=== PATIENT | female | born 2005 | race Caucasian/White ===

== ENCOUNTER 2023-04-06 08:59 | Day surgery (SDC) | payer OTHER, SELFPAY ==
[2023-04-06 14:30] VITALS: BMI 23.8
[2023-04-07] VITALS (13 sets, daily range): BP systolic 92–110; BP diastolic 55–73; PULSE 73–89; RESP 14–22; O2SAT 99–100; BMI 23.4
--- NOTE | 2023-04-07 11:15 | WPDHPUPDATE1 ---
History and Physical Update Update Date/Time: 04/07/23 11:15 History and Physical has been reviewed, including an updated exam of the patient. There are NO changes in the patient's condition. Risks, benefits, and alternatives have been discussed and questions answered. Patient agrees to proceed with procedure.
--- NOTE | 2023-04-07 11:15 | WPDMODSED ---
Moderate Sedation Note-Pt Data Patient Data Diagnosis: Aortic regurgitation, possible congenital heart disease Present Complaint: None History and physical update: Patient is a pleasant 17-year-old female with no significant past medical history aside from ADHD originally seen for palpitations and tachyarrhythmia who underwent 2D echocardiogram which revealed possible bicuspid congenital aortic valve with [id number] aortic valve regurgitation subsequently referred for transesophageal echocardiogram for further clarification of cardiac anatomy and valvular heart disease. Impression: Aortic regurgitation secondary to possible bicuspid aortic valve Palpitations suggestive of SVT ADHD Recommendations: Transesophageal echocardiogram for evaluation congenital heart disease. Recommendation to follow. Allergies Allergy/AdvReac Type Severity Reaction Status Date / Time Penicillins Allergy Unknown Verified 04/07/23 10:42 Home Medications Medication Instructions Recorded Confirmed Type bupropion HCl 150 mg tablet,12 hr 150 mg PO DAILY 04/06/23 04/06/23 History sustained-release norgestimate-ethinyl estradiol 1 tablet PO DAILY 04/06/23 04/06/23 History 0.18 mg/0.215mg/0.25mg-35 mcg(28)tablet (Tri-Sprintec (28)) Current Medications: Active Medications Sodium Chloride (Normal Saline Iv) 1,000 mls @ 100 mls/hr IV CONT .Q10H SHELLY Sedation/Anesthesia: No previous sedation/anesthesia problems (including family history). [facility] Past Medical History Medical History ADHD Aortic regurgitation Paroxysmal SVT (supraventricular tachycardia) Social History Social History Smoking status: Never smoker Second hand tobacco smoke exposure: No Alcohol intake: never Substance use: never Substance use type: does not use Living arrangements: with family Spiritual care concerns: No Mod Sed Physical Exam Physical Exam Pre Procedural Exam: Normal: Appearance, Eyes, Ears, Nose, Neck (Neck supple, normal range of motion), Throat (Posterior hypopharynx clear, nonerythematous), Airway (Normal anatomy no obstruction), Lungs (Clear to auscultation bilaterally), Heart Size, Heart Rate, Heart Rhythm, Neuro Exam, Abdomen, Liver, Extremities and Skin Hours since solid foods: 12 Hours since liquid intake: 12 Mallampati Classification: class III Internal Medicine - PN: Obj Da Vital Signs Vital Signs: Vital Signs - 24 hr 04/07/23 10:45 Pulse Rate 86 Respiratory Rate 20 Blood Pressure 110/64 Pulse Oximetry 100 Oxygen Delivery Room Air Meds/Results Medications: Active Medications Generic Name Dose Route Start Last Admin Trade Name Freq PRN Reason Stop Dose Admin Sodium Chloride 1,000 mls @ 100 mls/hr 04/07/23 10:30 Normal Saline Iv IV CONT .Q10H SHELLY ASA Classification/Sedation ASA Classification/Sedation ASA Class: III Emergent: No Risks: Risks, benefits and alternatives explained and patient/family accepted plan for sedation. Patient re-evaluated immediately prior to sedation.
--- NOTE | 2023-04-07 11:22 | WPDTEECHO ---
SANDRA TransEsophageal Echocardiogram Date of procedure: 04/07/23 Procedure Type: Transesophageal echocardiogram Diagnosis: Aortic regurgitation, possible congenital heart disease Indications: Aortic regurgitation, possible congenital heart disease Image Quality: Acceptable Findings: Brief history present illness: Patient is a pleasant 17-year-old female with complaints palpitations possible SVT with a history of ADHD who underwent echocardiogram which revealed mild to moderate aortic regurgitation of possible bicuspid aortic valve subsequently referred for transesophageal echocardiogram for further evaluation for further clarification of cardiac anatomy and severity of aortic regurgitation. Procedure in detail: After verbal and written informed consent was obtained the patient risks, benefits, and alternatives explained in detail the patient agreed to proceed with the plan of care as outlined above. The patient was evaluated at bedside in the [facility] procedure room. The posterior oropharynx, neck, and jaw angle all within normal limits on examination. Lungs were clear to auscultation. See pre-sedation note for further details The patient was then placed in the appropriate 30 to 45 degree angle supine position at a slight left lateral decubitus position. Patient was monitored throughout the study with telemetry, oxygen saturation, end-tidal CO2 monitoring, blood pressure, heart rate, and respirations. The posterior hypopharynx was then locally anesthetized using repeated administration of Hurricaine spray as well as gargled viscous lidocaine. After local anesthetic of the posterior hypopharynx was achieved and the oral bite block placed, moderate sedation was administered. After confirmation of adequate moderate sedation, the transesophageal echocardiogram probe was advanced through the oral bite block into the posterior hypopharynx and into the esophagus easily and without complication. Multiple, multiplanar echocardiographic images were obtained in multiple standard re- projections. Pulsed wave, continuous-wave, and color-flow Doppler were utilized in conjunction with this study. At the conclusion of the study, the transesophageal echocardiogram probe was removed easily and without complication. The patient tolerated the procedure well without difficulty. Patient was in sinus rhythm throughout the study. Moderate Sedation/Anesthesia administration: Patient reports no prior problems with sedation/anesthesia. Please see pre-sedation noted for physical examination documentation. As noted above, after adequate local anesthesia of the posterior hypopharynx was achieved, a total of 5 mg intravenous Versed and a total of 175 mcg intravenous Fentanyl in multiple divided doses was administered for moderate sedation. Sedation start time was 1148 and end time was 1218 for a total intra-service/procedure face-face time of 30 minutes. Sedation was administered by a qualified/certified observer Ruperto Mayer RN under my supervision with intra-procedure [id number] observation and management throughout the entirety of the procedure. There were no other issues or complications and patient tolerated the procedure well. See post-anesthesia documentation. FINDINGS: LEFT VENTRICLE: Size and systolic function were within normal limits without wall motion abnormalities with ejection fraction of 65%. RIGHT VENTRICLE: Size and systolic function within normal limits. LEFT ATRIUM: Normal size. RIGHT ATRIUM: Normal size. INTERATRIAL SEPTUM: Interatrial septum is anatomically normal without evidence of shunt with color-flow Doppler nor with injection of agitated saline. MITRAL VALVE: Mitral valve is anatomically normal with preserved leaflet excursion and no regurgitation identified. AORTIC VALVE: The aortic valve appears to be anatomically 3 leaflet with evidence for functionally bicuspid with fusion/median raphe between non and right chidi
== END 2023-04-07 13:20 | disposition home or self-care (01) ==
PROVIDERS: Visit Provider Internal Medicine Cardiovascular Disease
PROC: (CPT 93312; principal; 2023-04-07 11:30)
DX: Q23.1 Congenital insufficiency of aortic valve (principal); F90.9 Attention-deficit hyperactivity disorder, unspecified type; I47.10 Supraventricular tachycardia, unspecified
CPT/HCPCS: 93312; 93320; 93325; J2250; J3010; J7030

== ENCOUNTER 2023-07-17 10:19 | Inpatient (IN) | payer OTHER, SELFPAY ==
[2023-07-17] VITALS (9 sets, daily range): BP systolic 97–111; BP diastolic 55–70; PULSE 91–113; RESP 16–20; TEMP 36.5–36.8; O2SAT 95–100; BMI 23.3
--- NOTE | ~2023-07-17 | XR_ITS ---
XR chest 2V DATE: 07/17/2023 12:58 INDICATION: Shortness of breath, tachycardia. Influenza A+. TECHNIQUE: PA and lateral views COMPARISON: None FINDINGS: Normal heart size. No hilar or mediastinal enlargement. No pulmonary infiltrate or consolid ation, pleural effusion or pulmonary vascular congestion or pneumothorax. Included skeletal structure s are unremarkable. IMPRESSION: Negative Reviewed, dictated and finalized at location A. IMPRESSION: Negative
--- NOTE | ~2023-07-17 | CT_ITS ---
EXAMINATION: CTA chest PE protocol DATE: 07/17/2023 14:22 INDICATION: Shortness of breath. Tachycardia. TECHNIQUE: Computed tomography angiography (CTA) of the chest was performed with 100 mL Omnipaque-350 intravenous contrast timed to evaluate the pulmonary arteries. Coronal maximum intensity projection 3D-reconstructions were created by the technologist. Automated exposure control and iterative reconst ruction technique were employed. The dose-length product was 168.47 mGy-cm. COMPARISON: None. FINDINGS: The lungs demonstrate minimal atelectasis. No pleural effusion. The heart size is normal. N o pericardial effusion. There is no pulmonary embolus. There is mild thoracic spondylosis. IMPRESSION: 1. No pulmonary embolus. Reviewed, dictated and finalized at location E. IMPRESSION: 1. No pulmonary embolus.
[2023-07-17 12:04] LABS: Influenza A QL RT-PCR Positive (Negative); Influenza B QL RT-PCR Negative (Negative); RSV RNA, RT-PCR Negative (Negative); SARS-CoV-2 RNA PCR Negative (Negative)
--- NOTE | 2023-07-17 12:38 | ED.GENADULT ---
HPI - General Adult General Chief complaint: Unspecified Stated complaint: REQUESTING FLU SWAB Time Seen by Provider: 07/17/23 12:37 Source: patient Mode of arrival: ambulatory Limitations: no limitations History of Present Illness HPI narrative: Jacklyn is a 18-year-old female patient presenting to the emergency room with complaints shortness of breath and tachycardia. States that this started yesterday. Reports she does have a history of paroxysmal SVT and aortic regurgitation. States her watch-tracked heart over 200 yesterday, she was having some palpitations and and she felt as though she was going to pass out. Went to the urgent care today and they told her to come into the emergency room. Appears to be very anxious. Is requesting COVID/influenza testing. Patient had an echocardiogram back in March-patient's icu manager is Dr. Fletcher. Related Data Home Medications Medication Instructions Recorded Confirmed bupropion HCl 150 mg tablet,12 hr 150 mg PO DAILY 04/06/23 04/06/23 sustained-release norgestimate-ethinyl estradiol 1 tablet PO DAILY 04/06/23 04/06/23 0.18 mg/0.215mg/0.25mg-35 mcg(28)tablet (Tri-Sprintec (28)) Allergies Allergy/AdvReac Type Severity Reaction Status Date / Time Penicillins Allergy Unknown Verified 04/07/23 10:42 Review of Systems Review of Systems: Pertinent positives per HPI. Patient denies any fever, chills, rash, headache, visual changes, dizziness, chest pain, nausea, vomiting, diarrhea, constipation, abdominal pain, or any urinary issues. PMFSH Past Medical History Medical History ADHD Aortic regurgitation Paroxysmal SVT (supraventricular tachycardia) Social History Social History Smoking status: Never smoker Second hand tobacco smoke exposure: No Alcohol intake: never Substance use: never Substance use type: does not use Living arrangements: with family Spiritual care concerns: No Comments At the time of my signature, I reviewed and agree with the nursing past medical, surgical, social, and family history. There is no relevant family history pertinent to the patient complaint. Exam Narrative: General: Well-developed, well nourished, in no apparent distress Head: Normocephalic, atraumatic Eyes: Pupils equally round and reactive to light bilaterally, EOM intact, sclera and conjunctive clear, no discharge, lids normal Ears: TMs intact and clear, ear canals clear, no drainage, grossly hearing normal. Nose: Nares patent, clear discharge, no inflammation, no sinus tenderness. Mouth: Oral pharynx without lesions or masses, good dentition, MMM. Neck: Supple, trachea midline, no enlargement of anterior or posterior cervical nodes, no thyroid masses or goiter palpable. Cardio: Tachycardia, regular rate and rhythm, s1 and s2 normal, no murmur appreciated. Resp: Clear to auscultation bilaterally, no rhonchi, rales, wheezing or rubs Course Course Emergency Course: Portions of this record may have been created with voice recognition software. Vital Signs Vital signs: Vital Signs Temperature 36.8 C 07/17/23 10:31 Pulse Rate 113 H 07/17/23 10:31 Respiratory Rate 20 07/17/23 10:31 Blood Pressure 110/58 L 07/17/23 10:31 Pulse Oximetry 100 07/17/23 10:31 Oxygen Delivery Room Air 07/17/23 10:31 Temperature 36.7 C 07/17/23 14:55 Pulse Rate 95 07/17/23 14:56 Respiratory Rate 20 07/17/23 14:55 Blood Pressure 97/62 L 07/17/23 14:55 Pulse Oximetry 100 07/17/23 14:55 Oxygen Delivery Room Air 07/17/23 10:31 Vital signs reviewed Medical Decision Making MDM Narrative Medical decision making narrative: At the time of visit patient is resting comfortably on the exam table. Patient appears to be nontoxic. EKG: EKG shows normal sinus rhythm with heart rate [address]re
--- NOTE | 2023-07-17 12:50 | ECG_ITS ---
Measurements Intervals [place] Rate: 96 P: 62 MT: 113 QRS: 49 QRSD: 97 T: 62 QT: 362 QTc: 459 Interpretive Statements SINUS RHYTHM WITH SHORT MT INTERVAL MINIMAL Q WAVES- INFERIOR LEADS BORDERLINE T WAVE ABNORMALITY- ANTERIOR LEADS BORDERLINE ECG NO PREVIOUS ECG AVAILABLE FOR COMPARISON Electronically Signed On 07-17-2023 15:16:42 CDT by Filippo Gramajo D.O.
[2023-07-17 13:16] LABS: Basophils Percent Auto 0.2 % (0.2-1.2); Hematocrit 46.5 % (37.0-47.0); Hemoglobin 15.2 g/dL (12.0-15.0); Immature Granulocyte Absolute 0.06 K/mm3 (0.00-0.031); Immature Granulocyte Percent A 0.4 % (0-0.5); Lymphocytes Absolute Auto 1.42 K/mm3 (0.9-3.2); Lymphocytes Percent Auto 10.2 % (18.3-44.2); Mean Corpuscular HGB Conc 32.7 g/dl (32-36); Mean Corpuscular Hemoglobin 30.8 pg (26-34); Mean Corpuscular Volume 94.1 fl (80-100); Monocytes Absolute Auto 1.2 K/mm3 (0.1-0.6); Monocytes Percent Auto 8.7 % (2.6-8.5); Neutrophils Absolute Auto 11.2 K/mm3 (1.3-6.7); Neutrophils Percent Auto 80.5 % (45.5-73.1); Platelet Count Result 204 k/mm3 (150-375); Red Blood Count 4.94 M/mm3 (4.2-5.4); Red Cell Distribution Width 13.4 % (11.5-14.5); White Blood Count 13.9 K/mm3 (4.5-10.0)
[2023-07-17 13:27] LABS: Alanine Aminotransferase 50 U/L (6-35); Albumin Level 4.6 g/dL (3.5-5.1); Alkaline Phosphatase 68 U/L (38-126); Anion Gap 7 mmol/L (8-16); Aspartate Amino Transferase 51 U/L (14-36); Bilirubin,Total 0.9 mg/dL (0.2-1.3); Blood Urea Nitrogen 11 mg/dL (7-17); Calcium 9.7 mg/dL (8.4-10.2); Carbon Dioxide 27 mmol/L (22-30); Chloride 101 mmol/L (98-107); Estimated Glomerular Filt Rate 48; Glucose 118 mg/dL (65-110); Potassium 4.2 mmol/L (3.4-5.0); Sodium 135 mmol/L (137-145)
[2023-07-17 13:41] LABS: D Dimer 0.85 ug/mL (<0.48)
[2023-07-17 13:43] LABS: Troponin I 0.064 ng/mL (0.000-0.034)
[2023-07-17 13:56] LABS: INR 0.9; Prothrombin Time 12.6 Seconds (11.1-14.7)
[2023-07-17 13:57] LABS: Partial Thromboplastin Time 29.3 SECONDS (22.3-36.8)
[2023-07-17 14:00] LABS: Appearance Urine Cloudy (Clear); Bacteria Urine Rare /hpf; Bilirubin Urine 2+ (Negative); Blood Urine Trace (Negative); Color Urine Dark Yellow (Yellow); Glucose Urine UA Negative (Negative); Ketones Urine 2+ mg/dL (Negative); Leukocyte Esterase Ur Trace LEU/UL (Negative); Need Manual Microscopic Reviewed; Nitrate Urine Negative (Negative); Protein Urine 3+ mg/dL (Negative); Specific Grav Ur 1.033 (1.001-1.035); Squamous Epithelial Cell Urine Moderate /hpf (Few)
[2023-07-17 14:04] LABS: Add Urine Microscopic? YES
[2023-07-17 14:27] LABS: Amphetamine Screen Urine Negative (Negative); Barbiturate Screen Urine Negative (Negative); Benzodiazepines Screen Urine Negative (Negative); Cannabinoid Screen Urine Positive (Negative); Cocaine Screen Urine Negative (Negative); Methadone Screen Urine Negative (Negative); Opiate Screen Urine Negative (Negative); Phencyclidine Screen Urine Negative (Negative)
[2023-07-17] MEDS: SODIUM CHLORIDE 0.9% IV 1,000 ML 999 ML IV CONT ×2 (14:53→15:48)
[2023-07-17] MEDS: ASPIRIN 81 MG CHEWABLE TABLET 324 MG PO (14:53)
--- NOTE | 2023-07-17 16:55 | ECG_ITS ---
Measurements Intervals [place] Rate: 92 P: 52 [place]: 136 QRS: 45 QRSD: 92 T: 56 QT: 381 QTc: 471 Interpretive Statements SINUS RHYTHM MINIMAL Q WAVES- INFERIOR LEADS ST-T WAVE ABNORMALITY IN ANTERIOR LEADS- CONSIDER ISCHEMIA ABNORMAL ECG COMPARED TO ECG 07/17/2023 13:52:36 NO SIGNIFICANT CHANGES Electronically Signed On 07-17-2023 17:33:16 CDT by Filippo Gramajo D.O.
[2023-07-17 17:29] LABS: Troponin I 0.063 ng/mL (0.000-0.034)
--- NOTE | 2023-07-17 19:09 | PC.NURSE ---
Assumed care of pt from LEIGHANN Osullivan at this time.
[2023-07-17] MEDS: SODIUM CHLORIDE 0.9% IV 1,000 ML 125 ML IV CONT (19:26)
[2023-07-17 20:30] LABS: Troponin I 0.051 ng/mL (0.000-0.034)
--- NOTE | 2023-07-17 20:34 | PM.IMHP ---
H&P: HPI History of Present Illness Date/Time: 07/17/23 19:15 Chief Complaint: Racing heart. Narrative: This is a pleasant 18-year-old female with paroxysmal supraventricular tachycardia who presented to the emergency department via private vehicle for evaluation of racing heart. Patient provides the following history. It is typical for her to have a couple of episodes of SVT a month, typically lasting no longer than 30 minutes. She has tried Valsalva but that is not were broken the rhythm. She is not on any medications for this. She was recently in [place] for spring and the last couple of days she has developed upper respiratory symptoms as well as nausea, vomiting, and diarrhea. She also reports pretty persistent palpitations and sensations of racing heart and her smart watch has shown her heart rate has been as high as 200 beats per minute. She sustained these rapid heart rates throughout majority of the day yesterday and today. She has palpitations with that but no overt chest pain. She has been feeling lightheaded and dizzy and she believes that she had a brief syncopal episode while in the shower this morning. She uses marijuana but denies other substance abuse. Reports drinking alcohol in moderation while on spring. In the ED: She has been in a sinus tachycardia since arrival. She tested positive for influenza A. Labs were significant for a WBC count of 13.9, D-dimer 0.85, troponin 0.064, AST 51, ALT 50, BUN 11, creatinine 1.40, sodium 135. Chest CT was negative for pulmonary embolus. She received 2 L normal saline in the ED as well as aspirin 324 mg. She is being admitted in this setting for close monitoring and further treatment. Review of Systems Review of Systems: Twelve systems were reviewed and are negative except for as per HPI. [facility] Past Medical History Medical History ADHD Aortic regurgitation Paroxysmal supraventricular tachycardia Social History Social History (Updated 07/17/23 @ 20:44 by Taisha Paul PA-C) Social History: Surrogate medical decision maker: Kayla To, mother. Code status: Full code. Smoking status: Never smoker Second hand tobacco smoke exposure: No Alcohol intake: never Substance use: current Substance use type: marijuana Living arrangements: with family Spiritual care concerns: No Meds Home Medications and Allergies Home Medications Medication Instructions Recorded Confirmed Type bupropion HCl 150 mg tablet,12 hr 150 mg PO DAILY 04/06/23 04/06/23 History sustained-release norgestimate-ethinyl estradiol 1 tablet PO DAILY 04/06/23 04/06/23 History 0.18 mg/0.215mg/0.25mg-35 mcg(28)tablet (Tri-Sprintec (28)) Allergies Allergy/AdvReac Type Severity Reaction Status Date / Time Penicillins Allergy Unknown Verified 04/07/23 10:42 Vital Signs Vital Signs - 24 hr 07/17/23 10:31 07/17/23 14:10 07/17/23 14:55 Temperature 98.3 F 98.0 F Pulse Rate 113 H 101 H Respiratory Rate 20 20 20 Blood Pressure 110/58 L 97/62 L Pulse Oximetry 100 99 100 Oxygen Delivery Room Air 07/17/23 14:56 07/17/23 19:01 Temperature Pulse Rate 95 91 Respiratory Rate 18 Blood Pressure 101/70 Pulse Oximetry 95 Oxygen Delivery Exam Narrative: General: Mildly ill-appearing female in the semi-Carpio position in bed. Weight: 59 kg. HEENT: PERRL, EOMI. Sclera anicteric. Tacky mucous membranes. Neck: Supple. No thyromegaly or JVD. Respiratory: Lungs are clear to auscultation bilaterally. Cardiovascular: Tachycardic with normal S1-S2. Gastrointestinal: Abdomen is soft, nontender, and nondistended with positive bowel sounds. Skin: Warm and dry. Extremities: No cyanosis, clubbing, or edema. Radial and pedal pulses intact. Neurological: Alert. Cranial nerves 2-12 are grossly intact. No gross focal deficits to casual conversation. Psychiatric: Pleasant and cooperative wi
--- NOTE | 2023-07-17 20:53 | PC.NURSE ---
Attempted to call IMU for report x2 times now. No answer. Will attempt again in x5 mins.
--- NOTE | 2023-07-17 22:19 | ADMGEN ---
This patient, Jacklyn To, was admitted to IMU Room 210-01. Patient/family oriented to hospital policies and general routines including ID bracelet, bed and alarms, visiting hours, pain management, procedures, bathroom and other care routines, personal items, smoking policy, room service/diet, and visiting hours. Information on how to activate the Rapid Response Team has been discussed. Patient/Family are encouraged to report perceived risks to care and to ask questions if they do not understand what they are told or what they should do.
[2023-07-17] MEDS: guaiFENesin/CODEINE (*CRX) 200/20 MG 10 ML SYRUP PO (23:40)
[2023-07-17] MEDS: OSELTAMIVIR PHOSPHATE 30 MG CAPSULE PO (23:41)
[2023-07-18] VITALS (12 sets, daily range): BP systolic 100–124; BP diastolic 53–60; PULSE 86–112; RESP 12–18; TEMP 36.7–38.4; O2SAT 100
[2023-07-18] MEDS: SODIUM CHLORIDE 0.9% IV 1,000 ML 125 ML IV CONT (04:17)
[2023-07-18 04:47] LABS: Hematocrit 35.3 % (37.0-47.0); Hemoglobin 11.2 g/dL (12.0-15.0); Mean Corpuscular HGB Conc 31.7 g/dl (32-36); Mean Corpuscular Hemoglobin 30.4 pg (26-34); Mean Corpuscular Volume 95.9 fl (80-100); Mean Platelet Volume 9.9 fl (7.4-10.4); Platelet Count Result 174 k/mm3 (150-375); Red Blood Count 3.68 M/mm3 (4.2-5.4); Red Cell Distribution Width 13.2 % (11.5-14.5); White Blood Count 8.9 K/mm3 (4.5-10.0)
[2023-07-18 04:59] LABS: Alanine Aminotransferase 26 U/L (6-35); Albumin Level 2.9 g/dL (3.5-5.1); Alkaline Phosphatase 49 U/L (38-126); Anion Gap 3 mmol/L (8-16); Aspartate Amino Transferase 26 U/L (14-36); Bilirubin,Total 0.6 mg/dL (0.2-1.3); Blood Urea Nitrogen 8 mg/dL (7-17); Calcium 7.8 mg/dL (8.4-10.2); Carbon Dioxide 24 mmol/L (22-30); Chloride 107 mmol/L (98-107); Creatine Kinase 76 U/L (30-135); Estimated CRCL calculation 68 ml/min; Estimated Glomerular Filt Rate > 60; Glucose 130 mg/dL (65-110); Magnesium 1.8 mg/dL (1.6-2.3); Potassium 3.6 mmol/L (3.4-5.0); Sodium 134 mmol/L (137-145)
[2023-07-18] MEDS: IBUPROFEN 400 MG TABLET 800 MG PO (05:52)
[2023-07-18] MEDS: buPROPion HCL SR (12 HR) 150 MG TAB PO (08:56)
[2023-07-18] MEDS: OSELTAMIVIR PHOSPHATE 30 MG CAPSULE PO (08:56)
--- NOTE | 2023-07-18 09:47 | PM.CNCAR ---
Assessment and Plan Assessment and plan (1) Paroxysmal SVT (supraventricular tachycardia): Code(s): I47.10 - Supraventricular tachycardia, unspecified Status: Acute Plan This is a 18-year-old lady with a history of intermittent SVT with palpitations for a number of years. She had another episode of this yesterday at with her heart rate being in the range of 200 per her own measurements as well as the that on her smart phone. The device does not produce any ECGs are rhythm strips that I can review this morning. Since she got to the hospital here yesterday she is in sinus rhythm and there have been no arrhythmias on telemetry. Had a long discussion with her about treatment options of this which of course include conservative observation, initiation of medical therapy such as beta-tee or diltiazem alternatively consultation with nurses' registry director for an attempt at curative we ablating her SVT. My suggestion because of her very young age is to consult with EP and hopefully this arrhythmia can be successfully ablated so she is not experiencing this symptom going forward and does not have to be started on medication at such a young age. Regarding her aortic valve regurgitation it seems to be very mild by physical exam and longitudinal follow-up of this is already arranged in the office. From my perspective she can be discharged there is no cardiac reason for her to be hospitalized and her modest troponin elevation is certainly attributable to be in SVT yesterday for a number of hours there is no reason we need to consider ischemia workup in this 18-year-old lady with no risk factors for ischemic heart disease. Javier Lantigua MD [facility] History of Present Illness History of Present Illness Consult date/time: 07/18/23 09:47 Reason For Visit: SVT, elevated trop, influenza A Narrative: This is a very pleasant 18-year-old woman I am seeing at the request of the hospitalist because of an episode of supraventricular tachycardia as well as elevation of her troponin level. The patient is unknown to me but apparently known to and followed by my partner, Dr. Logan. She has a history of symptomatic intermittent tachycardia/palpitations for about for 5 years. She says that an outpatient event monitor for 30 days couple of years ago demonstrated evidence of intermittent SVT for which she has been followed in the office longitudinally. The decision was made by she and my partner to not initiate antiarrhythmic therapy because the episodes were infrequent and she is rather young to be taking medication if it is not necessary. 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 She is known to have some aortic valve regurgitation which was also noted by my partner. There was some concern in her chart that she might have a bicuspid aortic valve but transesophageal echo done last year demonstrated her aortic valve to be a 3 leaflet valve with some AI. The aortic regurgitation was going also to be followed in the office longitudinal E. she feels well at this time and does not have any complaints. She has been feeling ill recently with symptoms of a upper respiratory viral illness and she says that last week she did test positive for influenza. She has had a low-grade fever as well and has a temperature this morning. Review of Systems Constitutional: Constitutional: Reports no additional constitutional complaints Eyes: Eyes: Reports no additional eye complaints ENT: Reports system reviewed and no additional complaints, except as documented Cardiovascular: Cardiovascular: Reports palpitations Respiratory: Respiratory: Reports no additional respiratory complaints Gastrointestinal: Gastrointestinal: Reports no additional gastrointestinal complaints Musculoskeletal: Musculoskeletal: Reports no additional musculoskeletal complaints Integumentary/Breasts: Skin/Breast: Reports system reviewed and no
--- NOTE | 2023-07-18 15:39 | PM.DS ---
DS: Admitting Diagnosis Discharge Date 07/18/23 Admitting Diagnosis SVT DS: Discharge Diagnosis Discharge Diagnosis (1) Paroxysmal supraventricular tachycardia: Code(s): I47.10 - Supraventricular tachycardia, unspecified Status: Acute (2) Influenza A: Code(s): J10.1 - Influenza due to other identified influenza virus with other respiratory manifestations Status: Acute (3) Elevated troponin: Code(s): R79.89 - Other specified abnormal findings of blood chemistry Status: Acute Plan # influenza a -Tamiflu 5 day course 07/17- # paroxysmal SVT # elevated troponin -cardiology consult recommended the ED follow-up, no beta-tee at this time -troponin elevation secondary to SVT -patient follows Dr. Logan DS: Summary Hospital Course Reason for hospitalization: SVT Hospital Course: Patient is a 18-year-old female with past medical history of paroxysmal SVT, aortic valve regurgitation presents to ED with complaints of racing heart on 07/17/2023. She is found to have influenza A we are treating with Tamiflu, Rx for Tamiflu given to complete 5 day course. She is found have SVT which did not improve with Valsalva. Patient has had numerous episodes SVT in the past. She follows community product specialist Dr. Logan. She was seen by Dr. Hayward in consultation. Cardiology had discussed options of conservative management, medical therapy, EP ablation. Patient is opting for EP ablation, referral given. No indication for ischemic workup due to patient's age and lack of risk factors. At time of discharge patient's labs are stable, vitals stable, patient is stable for discharge home. Patient follow-up with PCP in 1 week. Patient understands and agrees with plan. Status at Discharge Cognitive/behavioral status at discharge: baseline, stable Time Spent with Patient Time attestation: Total time spent providing and/or coordinating discharge services: 35 minutes Exam Narrative: - GENERAL: Pleasant woman no acute distress. Well-nourished. - EYES: EOMI. Anicteric. - HENT: Moist mucous membranes. - LUNGS: Clear to auscultation bilaterally, no wheezing, rhonchi, or rales. She has a coarse cough otherwise clear lungs - CARDIOVASCULAR: Regular rate and rhythm. No murmur. No JVD. - ABDOMEN: Soft, non-tender and non-distended. No palpable masses. - EXTREMITIES: No edema. Peripheral pulses 2+. Non-tender. - NEUROLOGIC: No focal neurological deficits. CN II-XII grossly intact. - PSYCHIATRIC: Awake, Alert and oriented x 3. Appropriate mood and affect. - SKIN: No rashes or lesions. Warm. - LYMPH: No cervical lymphadenopathy. DS: Data Data Completed and Pending Labs on day of discharge: Labs from last 24 hours 07/18/23 07/18/23 07/17/23 04:28 04:27 19:52 WBC 8.9 RBC 3.68 L Hgb 11.2 L D Hct 35.3 L MCV 95.9 MCH 30.4 MCHC 31.7 L RDW 13.2 Plt Count 174 MPV 9.9 Sodium 134 L Potassium 3.6 Chloride 107 Carbon Dioxide 24 Anion Gap 3 L BUN 8 Creatinine 1.00 Estim Creat Clear Calc 68 Estimated GFR > 60 Glucose 130 H Calcium 7.8 L Magnesium 1.8 Total Bilirubin 0.6 AST 26 ALT 26 Alkaline Phosphatase 49 Total Creatine Kinase 76 Troponin I 0.051 H* Total Protein 6.0 L Albumin 2.9 L TSH (Reflex) 1.870 07/17/23 17:02 WBC RBC Hgb Hct MCV MCH MCHC RDW Plt Count MPV Sodium Potassium Chloride Carbon Dioxide Anion Gap BUN Creatinine Estim Creat Clear Calc Estimated GFR Glucose Calcium Magnesium Total Bilirubin AST ALT Alkaline Phosphatase Total Creatine Kinase Troponin I 0.063 H* Total Protein Albumin TSH (Reflex) Imaging Radiologist's impression: CXR 07/17/23 IMPRESSION: Negative? CTA chest 07/17/23 IMPRESSION: 1. No pulmonary embolus. Discharge Plan Discharge Attending physician on discharge: Jazmyn Cason Consulting providers:
== END 2023-07-18 16:10 | disposition home or self-care (01) | DRG 194 ==
LOC: ANHED 19:01 → ANHIMU 19:41
PROVIDERS: Emergency Medicine; Physician Assistant; Admitting Provider Internal Medicine; Emergency Provider Nurse Practitioner Family; Visit Provider Internal Medicine
DX: J10.1 Influenza due to other identified influenza virus with other respiratory manifestations (principal); I47.19 Other supraventricular tachycardia; N17.9 Acute kidney failure, unspecified; I35.1 Nonrheumatic aortic (valve) insufficiency; R79.89 Other specified abnormal findings of blood chemistry; F90.9 Attention-deficit hyperactivity disorder, unspecified type; E86.0 Dehydration
CPT/HCPCS: 36415; 71046; 71275; 80053; 80307; 81001; 81025; 82550; 83735; 84443; 84484; 85025; 85027; 85380; 85610; 85730; 87086; 87637; 93005; 96360; 99285; A9270; J7030; Q9967

== ENCOUNTER 2025-03-08 17:58 | Emergency (ER) | payer OTHER, SELFPAY ==
--- NOTE | 2025-03-08 18:01 | ED.ANXIETY ---
HPI - Anxiety General Chief Complaint: Anxiety Stated Complaint: ANXIETY Time Seen by Provider: 03/08/25 18:10 Source: patient Mode of arrival: ambulatory Limitations: no limitations History of Present Illness HPI narrative: Jacklyn is a 19-year-old female patient presenting to the clinic today with complaints anxiety. Reports she has not slept or eaten in the last 3 days and feels extremely anxious. Her sister attempted suicide 3 day ago and is in the ICU at the hospital. She has been in the hospital/ICU for the last 3 days with her sister. Patient is tearful and trembling. She denies any chest pain or shortness of breath. No history of panic attacks in the past. Does have a history of testing anxiety. States she has had of propanolol before for this. Denies any thoughts of suicide or homicide. History of ADHD, aortic regurgitation, and SVT. Related Data Home Medications ?Medication ?Instructions ?Recorded ?Confirmed ?Last Taken ?Type norgestimate-ethinyl estradiol 1 tablet PO DAILY 04/06/23 07/17/23 07/16/23 09:00 History 0.18mg/0.215mg/0.25mg-0.035mg(28)tablet (Tri-Sprintec (28)) spironolactone 100 mg tablet mg 03/08/25 Unknown History Allergies Allergy/AdvReac Type Severity Reaction Status Date / Time Penicillins Allergy Unknown Verified 04/07/23 10:42 Review of Systems Review of Systems: Pertinent positives per HPI. Patient denies any fever, chills, rash, headache, visual changes, dizziness, cough, shortness of breath, chest pain, palpitations, nausea, vomiting, diarrhea, constipation, abdominal pain, or any urinary issues. [facility], [facility] Past Medical History Medical History ADHD Aortic regurgitation Paroxysmal supraventricular tachycardia Family History Family History Grandparent Acute myocardial infarction Grandparent Acute myocardial infarction Grandparent Acute myocardial infarction Social History Social History Social History: Surrogate medical decision maker: Kayla To, mother. Code status: Full code. Smoking status: Never smoker Second hand tobacco smoke exposure: No Alcohol intake: current Substance use: never Substance use type: marijuana Last use: Occasional drinker Do You Feel Safe in your Home?: Yes Lack of Transportation: No Lack of Food: Never True Current Housing: I Have Housing Concerned About Future Housing: No Difficulty Paying Gas/Electric Bills: No Difficulty Paying for Meds: No Currently Unemployed: No Education: High School Diploma/GED Difficulty w/ Childcare or Family Care: No Living arrangements: with family Spiritual care concerns: No Comments At the time of my signature, I reviewed and agree with the nursing past medical, surgical, social, and family history. There is no relevant family history pertinent to the patient complaint. Exam Narrative: General: Well-developed, well nourished, in no apparent distress Head: Normocephalic, atraumatic Eyes: Pupils equally round and reactive to light bilaterally, EOM intact, sclera and conjunctive clear, no discharge, lids normal Ears: TMs intact and clear, ear canals clear, no drainage, grossly hearing normal. Nose: Nares patent, no discharge, no inflammation, no sinus tenderness. Mouth: Oral pharynx without lesions or masses, good dentition, MMM. Neck: Supple, trachea midline, no enlargement of anterior or posterior cervical nodes, no thyroid masses or goiter palpable. Cardio: Tachycardic- Regular rate and rhythm, s1 and s2 normal, no murmur appreciated. Resp: Clear to auscultation bilaterally, no rhonchi, rales, wheezing or rubs Neuro: No focal deficits, cranial nerves 1-12 intact, sensation within normal limits, Extremities: No deformity, no edema, no cyanosis, capillary refill less than 2 seconds, peripheral pulses palpable and strong. Integumentary: [place], warm, and dry, intact without lesion, no rashes. Psych: Alert and oriented x 4, depressed/anxious mood and affect, pleasant, cooperative Course Course Emergency Course: Portions of this record may have been created with voice recognition software. Level of Care: Express Care Visit Vital Signs Vital signs: Vital Signs Temperature 36.6 C 03/08/25 18:06 Pulse Rate 117 H 03/08/25 18:06 Respiratory Rate 16 03/08/25 18:06 Blood Pressure 128/89 03/08/25 18:06 Pulse Oximetry 99 03/08/25 18:06 Temperature 36.6 C 10/31/25 18:06 Pulse Rate 117 H 03/08/25 18:06 Respiratory Rate 16 03/08/25 18:06 Blood Pressure 128/89 03/08/25 18:06 Pulse Oximetry 99 03/08/25 18:06 Vital signs reviewed MDM - Anxiety MDM Narrative Medical decision making narrative: At the time of visit patient is resting comfortably on the exam table. Patient appears to be nontoxic. Complaints anxiety. Reports she has not slept or eaten in the last 3 days and feels extremely anxious. Her sister attempted suicide 3 day ago and is in the ICU at the hospital. She has been in the hospital/ICU for the last 3 days with her sister. Patient is tearful and trembling. She denies any chest pain or shortness of breath. No history of panic attacks in the past. Does have a history of testing anxiety. States she has had of propanolol before for this. Denies any thoughts of suicide or homicide. History of ADHD, aortic regurgitation, and SVT. Plan: Patient is here for situational anxiety. Denies any chest pain or shortness of breath. Denies any thoughts of suicide or homicide. Will send in prescription for short course of Xanax 0.5 mg every 8 hours as needed. Recommend follow-up with psychiatrist/behavioral counseling for further support. Supportive measures were discussed with the patient and they voiced understanding discharge instructions and agrees to treatment plan. Return precautions reviewed Differential Diagnosis Differential diagnosis: Likely hyperventilation, panic disorder, acute anxiety and other (Situational anxiety) Discharge Plan Discharge Clinical Impression: Situational anxiety Patient Disposition: Home Condition: Stable Instructions: Antibiotic Form, Anxiety (ED) Additional Instructions: Go home and rest Take Xanax as prescribed. Increase fluids and stay well hydrated Recommend following up with psychiatrist/behavioral counselor as soon as possible Follow-up with PCP or [facility] Patient Language: Kenyan Prescriptions: New alprazolam [Xanax] 0.5 mg tablet 0.5 mg PO TID PRN (Reason: anxiety) 3 Days Qty: 10 0RF No Action spironolactone 100 mg tablet norgestimate-ethinyl estradiol [Tri-Sprintec (28)] 0.18/0.215/0.25 mg-35 mcg (28) tablet 1 tablet PO DAILY Follow-up/Referrals: PHYSICIAN,BULLET SLUGS INSPECTOR [Primary Care Provider, Internal Medicine] Time of Disposition: 18:18 Quality NIHSS Nursing Documentation ED NIHSS nursing documentation: reviewed/agree
[2025-03-08 18:06] VITALS: BP 128/89; PULSE 117; RESP 16; TEMP 36.6; O2SAT 99
== END 2025-03-08 18:25 | disposition home or self-care (01) ==
PROVIDERS: Emergency Provider Nurse Practitioner Family
DX: F41.8 Other specified anxiety disorders (principal); I35.1 Nonrheumatic aortic (valve) insufficiency
CPT/HCPCS: 99213; G0463